=== PATIENT | female | born 1960 | race Caucasian/White ===

== ENCOUNTER 2017-04-11 08:17 | Emergency (ER) | payer BC ==
--- NOTE | 2017-04-11 09:00 | EDM.PDOC ---
ED HPI GENERAL MEDICAL PROBLEM - General Chief Complaint: Fever Stated Complaint: INFLUENZA NOT GETTING BETTER Time Seen by Provider: 04/11/17 08:40 Source of Information: Reports: Patient, RN Notes Reviewed - History of Present Illness INITIAL COMMENTS - FREE TEXT/NARRATIVE: 57-year-old lady comes in with cough fever chills. This all started about 4 days ago. She thought she was getting better 2 days ago and then is felt more ill again yesterday and this morning. Her cough is continued to be frequent, quite annoying, making it difficult to sleep. Sleep nonproductive. Some nasal and sinus congestion. Scratchy throat. He has had headache and myalgias as well and does continue to have fever and chills. He was seen at the clinic a few days ago, did test negative for influenza that time but due to symptoms so strongly suggestive for influenza was started on Tamiflu at that time. Generalized Pain Score (Numeric/FACES): 8 - Related Data Allergies Allergy/AdvReac Type Severity Reaction Status Date / Time No Known Allergies Allergy Verified 04/11/17 08:29 Home Meds: Home Meds Acetaminophen [Tylenol Extra Strength] 1,000 mg PO Q4H PRN 04/11/17 [History] Ibuprofen [Advil] 400 mg PO Q6H PRN 04/11/17 [History] Levofloxacin [Levaquin] 500 mg PO DAILY #7 tab 04/11/17 [Rx] Oseltamivir [Tamiflu] 75 mg PO DAILY 04/11/17 [History] ED ROS GENERAL - Review of Systems Review Of Systems: See Below Constitutional: Reports: Fever, Chills HEENT: Reports: Rhinitis, Sinus Problem, Throat Pain Respiratory: Reports: Cough Cardiovascular: Reports: Chest Pain GI/Abdominal: Reports: Decreased Appetite, Nausea. Denies: Abdominal Pain ( With coughing), Vomiting (Gone) Musculoskeletal: Reports: Other (Generalized achiness) Skin: Denies: Rash Neurological: Reports: Dizziness, Headache ED EXAM, GENERAL - Physical Exam Exam: See Below General Appearance: Alert, Mild Distress Eye Exam: Bilateral Eye: PERRL Ear Exam: Bilateral Ear: TM normal Throat/Mouth: Normal Inspection Head: No: Facial Swelling Neck: Supple, Full Range of Motion. No: Lymphadenopathy (L), Lymphadenopathy (R ) Respiratory/Chest: No Respiratory Distress, Lungs Clear. No: Rhonchi, Wheezing Cardiovascular: Regular Rate, Rhythm GI/Abdominal: Non-Tender Extremities: Normal Inspection. No: Pedal Edema, Leg Pain Neurological: Alert, Oriented, No Motor/Sensory Deficits Skin Exam: Warm, Dry, Normal Color Course - Vital Signs Last Recorded V/S: Last Vital Signs Temp 100.0 F 04/11/17 10:46 Pulse 93 04/11/17 08:25 Resp 24 H 04/11/17 08:25 BP 129/81 04/11/17 08:25 Pulse Ox 97 04/11/17 08:25 Orthostatic Blood Pressure [ 103/76 Standing] Orthostatic Blood Pressure [ 124/74 Sitting] Orthostatic Blood Pressure [ 126/87 Supine] - Orders/Labs/Meds Orders: Active Orders 24 hr Category Date Time Status Chest 1V Frontal [CR] Stat Exams 04/11/17 08:54 Taken Meds: Medications Discontinued Medications Generic Name Dose Route Start Last Admin Trade Name Lucien PRN Reason Stop Dose Admin Acetaminophen 975 mg 04/11/17 10:41 04/11/17 10:46 Tylenol PO 04/11/17 10:42 975 mg NOW ONE Administration Levofloxacin 500 mg 04/11/17 10:11 04/11/17 10:17 Levaquin PO 04/11/17 10:12 500 mg ONETIME ONE Administration - Re-Assessments/Exams Free Text/Narrative Re-Assessment/Exam: 04/11/17 12:50 Influenza screen did come back negative. X-ray shows what looks like a small infiltrate left lower lobe. Patient's oxygenation is good. Hydration status looks good. She feels ill but I do not find good reason for her to be in the hospital at this time. She should be able to rest, drink fluids and to take oral antibiotics at home, discharge instructions as documented. Departure - Departure Time of Disposition: 10:13 Disposition: Home, Self-Care 01 Condition: Fair Clinical Impression: Viral upper respiratory infection Pneumonia Qualifiers: Pneumonia type: due to unspecified organism Laterality: left Lung location: lower lobe of lung Qualified Code(s): J18.1 - Lobar pneumonia, unspecified organism - Discharge Information Prescriptions: Levofloxacin [Levaquin] 500 mg PO DAILY #7 tab Instructions: Fever, Adult Referrals: Gosia Jones, [employer] ANALYST [Primary Care Provider] - Forms: ED Department Discharge, ED Return to Work/School Form Additional Instructions: Your influenza screen was negative. It does appear that you have a touch of walking pneumonia on your chest x-ray. Rest, off work at least until Wednesday , Levaquin antibiotic 500 mg daily. You have been given your first dose this morning here in the ED. Prescription for that has been sent electronic to [facility] pharmacy. That up tomorrow morning with your next dose tomorrow morning and then continue daily until gone. Follow-up clinic if not much better within 3-4 days as expected. - My Orders Last 24 Hours: My Active Orders 04/11/17 08:54 Chest 1V Frontal [CR] Stat - Assessment/Plan Last 24 Hours: My Active Orders 04/11/17 08:54 Chest 1V Frontal [CR] Stat
[2017-04-11] MEDS ORDERED: Levofloxacin 250 MG Tab PO ONE (10:11)
[2017-04-11] MEDS ORDERED: Acetaminophen 325 MG Tab PO ONE (10:41)
--- NOTE | 2017-04-12 07:42 | CR ---
Chest: Portable view of the chest is obtained. Comparison: No previous study. Mild increased density within the left lung base is seen. Lungs otherwise are clear. Heart size and mediastinum are normal. Slight scoliosis and degenerative change is noted within the spine. Nothing acute is identified within the osseous structures. Impression: 1. Increased density within left lower lung suspicious for pneumonia. Please correlate if this matches the patient's symptoms. 2. Other incidental findings. Diagnostic code #3
== END 2017-04-11 10:49 | disposition home or self-care (01) ==
LOC: JD.ED 08:17
DX: J18.9 Pneumonia, unspecified organism (principal); J06.9 Acute upper respiratory infection, unspecified; Z79.899 Other long term (current) drug therapy
CPT/HCPCS: 71045; 87804; 99283; A9270

== ENCOUNTER 2021-10-09 08:06 | Day surgery (SDC) | payer BC ==
[~2021-10-09 08:06] MED LIST: Lactated Ringers 1,000 ML IV SCH; Lidocaine 1%/Sod Bicarbonate in NS 8.4% 1 ML Syringe IDERM PRN; Sodium Chloride 0.9% 10 ML Syringe FLUSH PRN; Sodium Chloride 0.9% 10 ML Syringe FLUSH SCH
[2021-10-09] MEDS ORDERED: Propofol 200 MG/20 ML SDV ONE ×2 (10:52→11:21)
[2021-10-09] MEDS ORDERED: fentaNYL 100 MCG/2 ML SDV ONE (10:53)
[2021-10-09] MEDS ORDERED: Ondansetron 4 MG/2 ML SDV IVPUSH PRN (11:07)
[2021-10-09] MEDS ORDERED: Lactated Ringers 1,000 ML ONE (11:17)
== END 2021-10-09 12:46 | disposition home or self-care (01) ==
LOC: JD.SDS 08:06
PROVIDERS: ATTEND Surgery
DX: Z12.11 Encounter for screening for malignant neoplasm of colon (principal); D12.3 Benign neoplasm of transverse colon; K57.30 Diverticulosis of large intestine without perforation or abscess without bleeding; G25.81 Restless legs syndrome; Z79.899 Other long term (current) drug therapy; Z80.0 Family history of malignant neoplasm of digestive organs
CPT/HCPCS: 45380; J2704; J3010; J7120; 36415; 80053; 83735; 85025; 96361; 96374; 96375; 99284-25; J1885; J2405; J7030

== ENCOUNTER 2021-10-09 17:19 | Emergency (ER) | payer BC ==
[2021-10-09] MEDS ORDERED: Ondansetron 4 MG/2 ML SDV IVPUSH ONE (18:40)
[2021-10-09] MEDS ORDERED: Sodium Chloride 0.9% 10 ML Syringe FLUSH PRN (18:40)
[2021-10-09] MEDS ORDERED: Sodium Chloride 0.9% 1,000 ML IV ONE (18:40)
[2021-10-09] MEDS ORDERED: Ketorolac 30 MG/ML SDV IVPUSH ONE (21:03)
== END 2021-10-09 21:24 | disposition home or self-care (01) ==
LOC: JD.ED 17:19
DX: R11.2 Nausea with vomiting, unspecified (principal); Z86.16 Personal history of COVID-19
CPT/HCPCS: 36415; 80053; 83735; 85025; 96361; 96374; 96375; 99284; J1885; J2405; J7030